=== PATIENT | male | born 1975 | race African-American/Black ===

== ENCOUNTER 2018-12-17 09:34 | Emergency (ER) | payer OTHER, SELFPAY | END 2018-12-17 10:30 | disposition home or self-care (01) | LOC: MADERS 09:34 | DX: M54.41 Lumbago with sciatica, right side (principal); I10 Essential (primary) hypertension; Z87.891 Personal history of nicotine dependence | CPT/HCPCS: 99283 ==

== ENCOUNTER 2019-03-28 15:44 | Outpatient (CLI) | payer OTHER ==
--- NOTE | 2019-03-28 16:50 | RAD ---
RIGHT HIP: 03/28/19 Two views. HISTORY: Hip pain. Severe degenerative change at the right hip with prominent spurring from the femoral head and acetabu lum. There is loss of femoral head contour and there is prominent subcortical cystic change and scler osis indicating changes of avascular necrosis with secondary degenerative change. A linear lucency se en in the subcapital region of the femoral head on lateral view is noted. I cannot completely exclude a subtle subcapital fracture. Recommend further evaluation with MRI right hip. IMPRESSION: Severe degenerative change and deformity of the right hip with evidence of avascular necrosis with se condary degenerative change. Subtle subcapital fracture not excluded. Recommend further evaluation wi MRI pelvis with attention to right hip. POS: TAMI
== END 2019-03-28 15:45 | disposition home or self-care (01) ==
LOC: MADRAD 15:44
PROVIDERS: ATTEND Family Medicine
DX: M25.551 Pain in right hip (principal); M16.11 Unilateral primary osteoarthritis, right hip; M87.851 Other osteonecrosis, right femur

== ENCOUNTER 2019-06-20 22:26 | Emergency (ER) | payer SELFPAY ==
[~2019-06-20 22:26] MED LIST: Sodium Chloride 0.9% 1,000 ML BAG ONE
[2019-06-20 23:25] LABS: #Basophils 0.3 thou/uL (0.0-0.2); #Lymphocytes 2.9 thou/uL (1.20-3.40); #Monocytes 0.8 thou/uL (0.11-0.59); #Neutrophils 6.4 thou/uL (1.40-6.50); %Basophils 2.5 % (0.0-1.0); %Lymphocytes 28.3 % (21.0-51.0); %Monocytes 7.7 % (0.0-10.0); %Neutrophils 61.5 % (42.0-75.0); Hemoglobin 15.3 g/dL (14.0-18.0); Mean Corpuscular HGB CONC 30.8 g/dL (32.0-36.0); Mean Corpuscular Hemoglobin 25.4 pg (27.0-31.0); Mean Corpuscular Volume 82.6 fL (78.0-98.0); Platelet Count 270 thou/uL (130-400); RBC Distribution Width 12.3 % (11.5-14.5); Red Blood Cell (RBC) Count 6.03 mill/uL (4.70-6.10); White Blood Cell (WBC) Count 10.4 thou/uL (4.8-10.8)
[2019-06-20 23:26] LABS: Acetaminophen Less than 6.0 mcg/mL (10.0-30.0); Alcohol 15 mg/dL (Less than 10); Salicylate Less than 8.0 mg/dL (15.0-30.0)
[2019-06-20 23:28] LABS: ALT (SGPT) 24 U/L (8-55); AST (SGOT) 36 U/L (5-34); Albumin 5.1 g/dL (3.5-5.0); Alkaline Phosphatase 65 U/L (40-110); Anion Gap 25 mmol/L (10-20); BUN (Urea Nitrogen) 27 mg/dL (8.9-20.6); Bilirubin, Total 0.6 mg/dL (0.2-1.2); Calc. Creatinine Clearance 0 mL/min (70-130); Calcium 9.8 mg/dL (7.8-10.44); Carbon Dioxide 19 mmol/L (22-29); Chloride 107 mmol/L (98-107); Estimated GFR-MDRD 24; Globulin 3.4 g/dL (2.4-3.5); Glucose 108 mg/dL (70-105); Potassium 4.2 mmol/L (3.5-5.1); Protein, Total 8.5 g/dL (6.0-8.3); Sodium 147 mmol/L (136-145)
[2019-06-20 23:37] LABS: Bilirubin Small (Negative); Blood, Urine Negative (Negative); Clarity Clear (Clear); Glucose, Urine (Dipstick) Negative (Negative); Leukocyte Negative (Negative); Nitrite Negative (Negative); Protein, Urine (Dipstick) 100 mg/dL (Neg-Trace)
[2019-06-20 23:48] LABS: RBC/HPF 0-3 HPF (0-3)
[2019-06-20 23:49] LABS: Bacteria/HPF 1+ HPF (None Seen); Mucous/LPF 2+ LPF (<2+); Sperm/HPF Rare HPF (None Seen); Squamous Epithelial 0-3 HPF (0-3)
[2019-06-20 23:50] LABS: Amphetamine Detected (NotDetected); Barbiturates Screen Not Detected (NotDetected); Benzodiazepine Screen Not Detected (NotDetected); Cocaine Metabolite Screen Detected (NotDetected); Medtox Control Line Valid? VALID (VALID); Methadone Not Detected (NotDetected); Methamphetamine Detected (NotDetected); Opiate Screen Not Detected (NotDetected); Oxycodone Screen Not Detected (NotDetected); Phencyclidine (PCP) Not Detected (NotDetected); THC/Cannabinoid Screen Not Detected (NotDetected); Tricyclic Screen Not Detected (NotDetected)
[2019-06-21] MEDS ORDERED: Sodium Chloride 0.9% 1,000 ML ONE (00:12)
--- NOTE | 2019-06-21 07:24 | RAD ---
TWO VIEWS RIGHT HIP: HISTORY: Right hip pain. COMPARISON: 03/28/2019. FINDINGS: Two views right hip show no evidence of acute fracture or dislocation. There are severe degenerative changes in the right hip. IMPRESSION: Severe right hip osteoarthritis without acute osseous abnormality. POS: TONY
== END 2019-06-21 00:35 | disposition short-term general hospital (02) ==
LOC: MADERS 22:26
DX: N17.9 Acute kidney failure, unspecified (principal); M25.551 Pain in right hip; E86.0 Dehydration; F15.10 Other stimulant abuse, uncomplicated; Z87.891 Personal history of nicotine dependence; W18.30XA Fall on same level, unspecified, initial encounter
CPT/HCPCS: 36415; 80053; 80306; 80307; 81003; 81015; 82550; 85025; 93005; J7050

== ENCOUNTER 2019-08-26 07:49 | Emergency (ER) | payer SELFPAY ==
[2019-08-26 08:50] LABS: #Basophils 0.1 thou/uL (0.0-0.2); #Eosinphils 0.1 thou/uL (0.0-0.7); #Lymphocytes 2.3 thou/uL (1.20-3.40); #Monocytes 0.1 thou/uL (0.11-0.59); #Neutrophils 2.1 thou/uL (1.40-6.50); %Basophils 1.3 % (0.0-1.0); %Eosinophils 1.5 % (0.0-10.0); %Lymphocytes 48.7 % (21.0-51.0); %Monocytes 2.4 % (0.0-10.0); %Neutrophils 46.1 % (42.0-75.0); Hemoglobin 14.5 g/dL (14.0-18.0); Mean Corpuscular Hemoglobin 25.5 pg (27.0-31.0); Mean Corpuscular Volume 84.9 fL (78.0-98.0); Mean Platelet Volume 8.7 fL (7.4-10.4); Platelet Count 231 thou/uL (130-400); Red Blood Cell (RBC) Count 5.69 mill/uL (4.70-6.10); White Blood Cell (WBC) Count 4.6 thou/uL (4.8-10.8)
[2019-08-26 09:02] LABS: ALT (SGPT) 20 U/L (8-55); AST (SGOT) 18 U/L (5-34); Albumin 4.6 g/dL (3.5-5.0); Alkaline Phosphatase 68 U/L (40-110); Anion Gap 14 mmol/L (10-20); BUN (Urea Nitrogen) 13 mg/dL (8.9-20.6); Bilirubin, Total 0.4 mg/dL (0.2-1.2); Calc. Creatinine Clearance 0 mL/min (70-130); Calcium 9.4 mg/dL (7.8-10.44); Carbon Dioxide 26 mmol/L (22-29); Chloride 107 mmol/L (98-107); Estimated GFR-MDRD 81; Glucose 141 mg/dL (70-105); Potassium 5.3 mmol/L (3.5-5.1); Protein, Total 7.6 g/dL (6.0-8.3); Sodium 142 mmol/L (136-145)
[2019-08-26] MEDS ORDERED: Ketorolac Tromethamine 60 MG/2 ML VIAL ONE (09:11)
== END 2019-08-26 09:35 | disposition home or self-care (01) ==
LOC: MADERS 07:49
DX: M16.11 Unilateral primary osteoarthritis, right hip (principal); Z87.891 Personal history of nicotine dependence
CPT/HCPCS: 36415; 80053; 85025; J1885